=== PATIENT | female | born 1940 | race Caucasian/White ===

== ENCOUNTER 2017-01-02 10:38 | Inpatient (IN) | payer MEDICARE, OTHER ==
--- NOTE | ~2017-01-02 | HP ---
History And Physical [id number] [facility] [place]. [address] NAME: LENNY FALL : 38 STATUS : ADM IN [facility]#: [id number] AGE: 76 ADM/REG DATE : 01/02/17 MR#: [id number] REPORT SERV DATE: 01/02/17 DICTATED BY: JUSTIN RICCI DATE: 01/02/17 REPORT STATUS : Draft TRANSCRIBED BY: MODL DATE: 01/02/17 DATE OF ADMISSION: 01/02/2017 IDENTIFYING DATA: A 76-year-old white female whose PCP is Dr. Reza Sharma, medical oncologist is Dr. Hernan Sanabria, radiation oncologist is Dr. Guy; WEAVER HAND, Dr. Joe; GI, Dr. Trujillo; Neurology, Dr. Haro. CHIEF COMPLAINT: Right leg pain and fast heart rate. HISTORY OF PRESENT ILLNESS: This history of present illness is obtained by talking with the patient and her vvllscfo-gm-ptc at the bedside as well as speaking directly with Dr. Sharma and reviewing [employer] and the office notes sent by Dr. Sharma and a copy he sent of Dr. Hernan Sanabria's recent office note of 11/22/2016. 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 She had been to [facility] in the past as an outpatient for intensive physical therapy, but reportedly had no improvement of her chronic gait ataxia. She falls approximately one or two times per month. There was no loss of consciousness associated with these. She does use a cane but inconsistently. She states about two to three weeks ago, she fell. It is unclear the exact details. One point in time, it sounds like she was walking, and another point in time, she states she rolled out of bed. She has some bruising below the left eye. She had some right leg pain. She reportedly took Tylenol and it was better. Then on approximately five or six days ago, she started having some right buttock pain. No new falls associated. It does hurt to stand on that leg, but she is ambulating. She has been taking afhq-wav-jjngspz Tylenol for it and she chronically takes naproxen. She went to see Dr. Sharma today because of this and was noted to have a heart rate of 144 with a blood pressure of 90/60. He contacted us by phone and indicated she was in rapid atrial flutter. EKG was not sent with her and problem list was not sent with her. The patient has previous atrial flutter first noticed that I can find in the records on 10/24/2010 when she was hospitalized here for community-acquired pneumonia and seen by Dr. Huddleston. At that point in time, she converted into sinus rhythm. As far as she knows, no other episodes of this in the past. She was not aware today of her rapid heart rate. She had no sense of palpitations. No chest pain. No shortness of breath. REVIEW OF SYSTEMS: She states that her right hand coordination has been poor for some time for handwriting skills. She has some minimal chronic dyspnea on exertion. She had a little bit of diarrhea this morning. She has chronic urinary incontinence. She has occasional right ankle edema. She denies fever, cough, nasal congestion, sore throat, chest pain, abdominal pain, nausea, vomiting, bright red blood per rectum, melena, dysuria, rash tick bites, and anorexia. She states her weight has fluctuated between 99 and 104. ALLERGIES: SHE ON THE CHART HAS A HISTORY OF PENICILLIN ALLERGY, BUT SHE STATES THAT IS NOT CORRECT, SHE CAN TAKE IT, AND HAS BEEN TAKING IT. SHE STATES THAT SHE HAS HAD SULFA ALLERGY A CHILD, BUT SHE DOES NOT KNOW THE NATURE OF IT, AND SHE HAD CODEINE INTOLERANCE. History And Physical [address] [address] NAME: LENNY FALL : 38 STATUS : ADM IN [facility]#: [id number] AGE: 76 ADM/REG DATE : 01/02/17 MR#: [id number] REPORT SERV DATE: 01/02/17 DICTATED BY: JUSTIN RICCI DATE: 01/02/17 REPORT STATUS : Draft TRANSCRIBED BY: MODL DATE: 01/02/17 PAST MEDICAL HISTORY: Further otherwise is negative for diabetes, hypertension, asthma, myocardial infarction, congestive heart failure, seizure, biliary tract disease, liver disease, chronic kidney disease, kidney stones, thyroid disease, or sleep apnea. She had adenocarcinoma of the left upper lung, treated with wedge resection in 02/2014, three positive lymph nodes at that time. She underwent adjuvant chemotherapy with Dr. Hernan Sanabria including four cycles of cisplatin, pemetrexed. She also had adjuvant radiation through 08/2014. As far as the family knows, she has no evidence of disease. She has had iron deficiency anemia and has been referred by her telecom manager to Dr. Trujillo for an outpatient colonoscopy, which was not yet performed. She has osteoporosis, fibrocystic breast disease, overactive bladder, dementia with what the family describes as some possible Parkinson's like features according to what Dr. Haro has told them. She also has a history of depression and insomnia. She was evaluated at [place] for possible TIA several years ago. It was vague, but apparently she had some difficulty with word finding. At one point, she was referred to Neurosurgery at [place] for evaluation for normal pressure hydrocephalus. She underwent therapeutic spinal fluid removal, but did not have improvement, so no shunt was placed. She has had a history of gastroesophageal reflux disease and peptic ulcer disease years ago. She also has reportedly had urinary tract infections. It was difficult to get her to describe the symptoms associated with them. She does state that she had a recent urine infection and her WEAVER HAND, Dr. Joe, gave her an antibiotic. MEDICATIONS: Home medication list is still in process, but it looks like she takes Aggrenox b.i.d., Lexapro 10 mg daily, Aricept 10 mg daily, naproxen unknown strength b.i.d., KCl 20 mEq daily, Dexilant 60 mg daily, Tylenol over the counter p.r.n., iron over the counter daily, unknown strength; estradiol, unknown strength, daily; temazepam 7.5 mg at bedtime. These are per handwritten notes from her PCP. Some of them I am not able to read the milligrams clearly. PAST SURGICAL HISTORY: She had appendectomy, left upper lobe wedge removal, , hernia repair, hysterectomy, tonsillectomy, port placement, bladder Botox injections, and epidural steroid injections for chronic back pain. SOCIAL HISTORY: She quit smoking cigarettes 40 years ago. 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 She drinks maybe a 3rd a glass of wine at bedtime and denies any significant excess beyond that in the past. She walks at home with a cane sometimes. She lives with dogs. Family checks on her, but do not live with her. FAMILY HISTORY: Mother reportedly had lung cancer. Father had cirrhosis and she states "heart fibrillation." Brother with obesity, arthritis problems, thyroid disease, "heart fibrillation," and other heart problems. DIAGNOSTIC DATA: Most recent CBC that I find is quite old. Her last hemoglobin that I can find was 9.6 on 07/11/2016. Her last TSH that I could find was in 03/2015, it was normal at 1.52. On 08/25/2016, her basic metabolic profile was normal except for BUN of 31. Office History And Physical [address] [address] NAME: LENNY FALL : 38 STATUS : ADM IN [facility]#: [id number] AGE: 76 ADM/REG DATE : 01/02/17 MR#: [id number] REPORT SERV DATE: 01/02/17 DICTATED BY: JUSTIN RICCI DATE: 01/02/17 REPORT STATUS : Draft TRANSCRIBED BY: MODYinka DATE: 01/02/[address] Hernan Sanabria indicates labs on 11/22/2016, sodium 136, potassium 4.1, chloride 98, CO2 of 29, BUN 31, creatinine 0.7. The liver enzymes were normal. Her white count was 6.3, hemoglobin was 10.1, her MCV was microcytic at 80.5. EKG reveals atrial flutter with rapid ventricular response, nonspecific ST and T-wave abnormalities. PHYSICAL EXAMINATION: VITAL SIGNS: Temp is 98, pulse 145, respirations 18, blood pressure 116/87, O2 saturation is 97% on room air. BMI is 18.6. GENERAL: A well developed, thin, older female, who appears mildly anxious, but in no acute distress. HEENT: Head is atraumatic. Pupils are equal, round, and reactive to light. Extraocular motions are intact. No scleral icterus noted. Ears, externally unremarkable with no inflammatory changes noted. Nose, noninflamed externally. Septum midline. Nares patent. Mouth, moist. Good gag. No redness of the throat or gums or lips. NECK: Supple. No lymph node or thyroid enlargement. The carotids have good pulses. No bruits. LUNGS: Clear. Excellent air flow. No wheezes and no rhonchi anteriorly and posteriorly. Normal respiratory effort. HEART: Regular and rapid approximately 150 beats per minute. No murmur, gallop, or rub noted at the moment. ABDOMEN: Bowel sounds are positive. Soft, nondistended, nontender. No masses. No organomegaly. No bruits. EXTREMITIES: Warm. Good pulses. No clubbing, no cyanosis, no edema. No actively inflamed skin or joints. NEUROLOGIC: She is alert. She is oriented to person, place, time, and circumstance. Her motor strength is 3/5 in all four extremities. No Babinski, no clonus noted. Cranial nerves 2 through 12 are grossly normal. She has no pain in the right hip with active or passive range of motion at the hip or knee. She has some minimal right leg straight leg raise tenderness. ASSESSMENT: 1. Recurrent atrial flutter with rapid ventricular response, asymptomatic. 2. Right hip pain, probably arthritis or degenerative disk disease. 3. History consistent with iron deficiency anemia. 4. Frequent falls with chronic ataxia going for several years. 5. Low blood pressure initially today, now improved to 116/82. 6. See past medical history. PLAN: 1. She is being admitted on telemetry. We will check cardiac troponin. We will get a TSH and a fresh echocardiogram. We will check magnesium and potassium. We will check stool guaiac, and if she has diarrhea, we will check it for culture, leukocytes, parasites, and C diff since she had recent antibiotics. We will ask Cardiology their opinion about whether she might be a candidate for cardioversion or ablation since she appears to be a poor long-term candidate for anticoagulation with her frequent falls and her iron deficiency anemia. 2. We will ask physical therapy to reassess her. History And Physical [address] [address] NAME: LENNY FALL : 38 STATUS : ADM IN [facility]#: [id number] AGE: 76 ADM/REG DATE : 01/02/17 MR#: [id number] REPORT SERV DATE: 01/02/17 DICTATED BY: JUSTIN RICCI DATE: 01/02/17 REPORT STATUS : Draft TRANSCRIBED BY: SOLIS DATE: 01/02/17 3. Cardizem drip to help control her heart rate will be initiated at this time. 4. We will get x-rays of right hip and her lumbar spine. JOHNNA/SOLIS Justin Ricci M.D. / [id number] CC: Romaine Pérez M.D. Davey B. Daniel, M.D. Alan Shikoh, M.D. Raoul Haro M.D., PhD.
--- NOTE | ~2017-01-02 | CN ---
Consultation Report [facility] [address] [place] [place]. [address] NAME: LENNY FALL : 38 STATUS : ADM IN [facility]#: [id number] AGE: 76 ADM/REG DATE : 01/02/17 MR#: [id number] REPORT SERV DATE: 01/03/17 DICTATED BY: UNA WIN DATE: 01/02/17 REPORT STATUS : Draft TRANSCRIBED BY: MODL DATE: 01/02/17 CARDIOLOGY CONSULTATION DATE OF CONSULTATION: 01/02/2017 REASON FOR CONSULTATION: Atrial flutter with rapid ventricular rate. HISTORY OF PRESENT ILLNESS: The patient is a 76-year-old female who denies previous cardiac history. There is a report of brief episode of atrial flutter in the setting of pneumonia in 2010. The patient had a recent mechanical fall approximately 2 to 3 weeks ago with complaints of right hip pain. She was in seeing her primary care physician today when incidentally, she was noted to be tachycardic. She does report a one-day history of diarrhea. She denies any other GI symptoms. Specifically, she denies chest pain, presyncope, or syncope. She denies paroxysmal nocturnal dyspnea, dyspnea on exertion, or orthopnea. She does report a 1-year history of intermittent palpitations, which happen randomly and quite infrequently and are brief in duration. She has attributed them to her sedentary lifestyle and deconditioning and anxiety. On initial evaluation at [facility], she was noted to be in typical atrial flutter with 2:1 block. Given intravenous diltiazem with conversion to sinus rhythm. The patient is currently asymptomatic. Desires to be discharged. We discussed potential stroke risks associated with atrial flutter. CHADS2-VASc score of 5 (2 for age, 1 gender, 2 for history of cerebrovascular accident). PAST MEDICAL HISTORY: 1. Cerebrovascular accident approximately 3 years ago with history of multiple transient ischemic attacks. 2. History of lung carcinoma, status post left upper lobectomy with chemotherapy and radiation in 2013. 3. Reportedly a remote history of atrial flutter in the setting of pneumonia in 2010. 4. GERD. 5. Osteoporosis. 6. Recurrent falls secondary to unstable gait. SOCIAL HISTORY: Denies tobacco for at least the last 40 years. Reports occasional alcohol use. Denies illicit drug use. FAMILY HISTORY: Noncontributory. REVIEW OF SYSTEMS: Negative for all organ systems except per the history of present illness. On discussion with the patient, the patient reports that she has recurrent falls on average every 3 to 4 weeks. She has not been hospitalized for these falls. She has had no broken Consultation Report [address] [place]. [address] NAME: LENNY FALL : 38 STATUS : ADM IN [facility]#: [id number] AGE: 76 ADM/REG DATE : 01/02/17 MR#: [id number] REPORT SERV DATE: 01/03/17 DICTATED BY: UNA WIN DATE: 01/02/17 REPORT STATUS : Draft TRANSCRIBED BY: MODL DATE: 01/02/17 bones or major trauma or injury related to the same. PHYSICAL EXAMINATION: VITALS: BP 116/82. PULSE currently 76 and regular. WEIGHT 48 kg. RESPIRATIONS 12 and unlabored. OXYGEN SATURATION 97% on room air. GENERAL: Thin elderly female in no acute distress. HEENT: Normal. NECK: Supple, no JVD or bruit, normal carotid upstroke bilaterally, no thyromegaly. CHEST: Port catheter is noted subcutaneously in the right infraclavicular region. LUNGS: Clear to auscultation and percussion. No wheezes, rales or rhonchi. No use of accessory muscles. CARDIOLOGY: Regular rhythm, normal S1, S2, no thrill, no murmur, rubs or gallops, normal PMI. ABDOMEN: Bowel sounds positive, soft, nontender, and nondistended. No masses or aortic bruits. No hepatosplenomegaly or hepatojugular reflux. EXTREMITIES: No edema. Normal pulses. No clubbing or cyanosis. SKIN: Warm and dry, no significant rash. NEUROLOGIC: Alert and oriented x 3. Appropriate mood. LABORATORY DATA: Sodium 139, potassium 4.3, chloride 104, BUN 21, creatinine 0.81. Glomerular filtration rate 81 mL/minute. Glucose 138. WBC 8.3, hemoglobin 12.5, hematocrit 37.8, platelets 230,000. Beta natriuretic peptide mildly elevated at 444. Troponin marginally elevated at 0.12. Thyroid stimulating hormone normal at 1.5. EKG on presentation demonstrated typical atrial flutter with ventricular rate approximately 150 beats per minute. Following conversion to sinus rhythm, EKG in sinus rhythm with rate of 71 beats per minute and a normal EKG. IMPRESSION: Paroxysmal atrial flutter - spontaneous conversion to sinus rhythm. The patient asymptomatic currently. Reports one-year history of intermittent palpitations. The patient has significant fall risk; however, has had no significant injury thus far with falls. High stroke risk. We have recommended consideration for chronic anticoagulation as I believe her risk of recurrent stroke, particularly given her history of multiple TIAs and stroke in the past, outweighs her bleeding risk from mechanical fall. Request has been made to the case coordinator to evaluate for affordability of one of the three novel oral anticoagulants. She reports home blood pressures typically in the 90s, systolic. Blood pressure in the hospital has not been that low with blood pressures in the one-teens systolic. We could consider low dose metoprolol as blood pressure would tolerate. We will begin 12.5 mg of metoprolol b.i.d. and follow blood pressures and pulse. Thank you for the opportunity to see the patient in consultation. We will continue to follow the patient with you. Consultation Report [address] [place]. [address] NAME: LENNY FALL : 38 STATUS : ADM IN [facility]#: [id number] AGE: 76 ADM/REG DATE : 01/02/17 MR#: [id number] REPORT SERV DATE: 01/03/17 DICTATED BY: UNA WIN DATE: 01/02/17 REPORT STATUS : Draft TRANSCRIBED BY: SOLIS DATE: 01/02/17 ROSEY/SOLIS Kayla Win M.D. / [id number] CC: Romaine Pérez M.D.
--- NOTE | ~2017-01-02 | DS ---
Discharge Summary [facility] [address] [place]. [address] NAME: LENNY FALL : 38 STATUS : DIS IN PAT#: [id number] AGE: 76 ADM/REG DATE : 01/02/17 MR#: [id number] REPORT SERV DATE: 01/05/17 DICTATED BY: JUSTIN RICCI DATE: 01/04/17 REPORT STATUS : Draft TRANSCRIBED BY: MODL DATE: 01/04/17 ADMISSION DATE: 01/02/2017 DISCHARGE DATE: 01/04/2017 CONSULTANTS: Jass Win, Cardiology. DISCHARGE DIAGNOSES: 1. Paroxysmal atrial flutter with rapid ventricular response. 2. Mild anemia, consistent with iron deficiency. 3. Osteoarthritis of right hip. 4. 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 5. History of frequent falls, but no serious injury. HISTORY: This patient experiences periodic falls. She has chronic gait ataxia. She has in the past gone as an outpatient to [facility] for intensive physical therapy, but reportedly did not get improvement. She still falls once or twice per month. Fortunately, she has had no serious injuries with it. About a week to two prior to this admission, she had a fall, had some bruising on the left eye area, also some right hip and posterior back pain radiating to the leg. She was taking qqns-dvk-xyvtwkw Tylenol without improvement. She went to see her PCP, Dr. Sharma to discuss these pains and was noted to have a rapid heart rate in the 140s. EKG confirmed atrial flutter. Blood pressure was low. The patient was referred to us for direct admission. EKG did confirm atrial flutter with rapid ventricular response rate, 142 beats per minute with a nonspecific intraventricular conduction delay. We were preparing to give the patient a Cardizem infusion when she converted to sinus rhythm and her EKG confirmed that. Echocardiogram on 01/03/2017, left atrial size 2.8 cm; left ventricular ejection fraction 60%; mild left ventricular diastolic dysfunction; mildly dilated right ventricle with preserved systolic function; mildly calcified aortic valve without significant aortic stenosis; mild aortic, mitral, and tricuspid regurgitation. The patient's cardiac troponin was minimally elevated at 0.12 consistent with demand ischemia. TSH normal at 1.5, free T4 normal at 1.24. Potassium levels were normal. Magnesium levels were normal. Chest x-ray, PA and lateral showed some atelectasis at the left apex. This patient has a history of adenocarcinoma with a wedge resection of the left upper lobe, positive lymph nodes, had adjuvant chemo and radiation with Dr. Hernan Sanabria and Dr. Guy, and reportedly has no evident disease at this time. As far as that pain in her right hip and lumbar spine, plain films of her right hip revealed right hip joint osteoarthritis, no fracture dislocation, or lytic or blastic lesions. X-ray of her lumbar spine confirmed degenerative changes especially the L4 in relation to L5 and L5 in relation to L4. Tylenol was not controlling her pain. We did not want to use the anti-inflammatories at her age and with history of heart disease and likely need for anticoagulation, so we put her on low-dose tramadol which is seeming to help considerably. The patient has been referred to GI, Dr. Trujillo, for a colonoscopy because she has a history Discharge Summary [address] [address] NAME: LENNY FALL : 38 STATUS : DIS IN PAT#: [id number] AGE: 76 ADM/REG DATE : 01/02/17 MR#: [id number] REPORT SERV DATE: 01/05/17 DICTATED BY: JUSTIN RICCI DATE: 01/04/17 REPORT STATUS : Draft TRANSCRIBED BY: SOLIS DATE: 01/04/17 of iron deficiency anemia. Stool guaiac here on 01/02/2017 was negative. The patient's hemoglobin while here ranged between 11.2 and 12.5. Her indices are normal except RDW increased at 18.9. Her serum iron 66, ferritin is 19 which is low considering the inflammatory state she is in, TIBC was 350, B12 was 562. I did not start her on oral iron because that will make her stools black, and with her newly started Xarelto, it may create concern for active GI bleed. If she needs iron replacement, then I would recommend outpatient iron infusions. I spent time talking at length with the patient and her gjlonpcz-sp-dhx about the risks and benefits of anticoagulation in general. Her CHADS2 Vasc score is 5. We discussed the benefit is reduction of stroke risk, but not complete resolution of stroke risk. We talked about warfarin versus NOAC. She did not want to do warfarin. I described to her that there were no reversal agents for Xarelto or Eliquis. We did check the co-pay cost with case management. Eliquis is not on her part D at all, so the cost would stay very high, Xarelto and Pradaxa are. The patient preferred Xarelto. I will therefore stop her Aggrenox and use just low-dose aspirin with the Xarelto. DISCHARGE MEDICATIONS: Restasis one drop each eye twice a day; vitamin D 1000 units daily; Aricept 10 mg daily; Lexapro 10 mg daily; Dexilant 60 mg daily; Tylenol 650 q.4 hours p.r.n. mild pain; metoprolol 12.5 mg b.i.d., hold if systolic less than 100 or heart rate less than 60; melatonin 3 mg at bedtime p.r.n. insomnia; tramadol 50 mg half tablet t.i.d. p.r.n. pain and I gave her a written prescription for 45 of those, no refill; Estrace 0.5 mg daily; Salonpas topical; Xarelto 20 mg daily; aspirin 81 mg daily, I gave her written instructions; no Advil, Aleve, or ibuprofen. DISCHARGE INSTRUCTIONS: She is to follow up with Dr. Sharma in one week and with Cardiology, Dr. Win in three to four weeks. She should also follow up with Dr. Trujillo of GI, but she was told that she will need to talk to Dr. Trujillo about discontinuing the Xarelto prior to colonoscopy or upper endoscopy. I spent 35 minutes with the patient today. DICTATED BY: Romaine Pérez/STEFANL Justin Ricci M.D. / [id number] CC: Justin Ricci M.D. Discharge Summary [address] [address] NAME: LENNY FALL : 38 STATUS : DIS IN PAT#: [id number] AGE: 76 ADM/REG DATE : 01/02/17 MR#: [id number] REPORT SERV DATE: 01/05/17 DICTATED BY: JUSTIN RICCI DATE: 01/04/17 REPORT STATUS : Draft TRANSCRIBED BY: MODL DATE: 01/04/17 Romaine Velásquez M.D. Joseph Portera, M.D. Jonathan T Whaley, MD Davey B. Daniel, M.D. Matthew Kodsi, M.D., PhD. C. Hood Win M.D.
[~2017-01-02 10:38] MED LIST: AGGRENOX PO; ARICEPT10 PO; B-COMPLEX PO; CENESTIN PO; CENESTIN0.3 MG OR; CENESTIN0.625 MG OR; DSS PO; ESIDRIX PO; ESTROGEN PO; FOLIC PO; FOS10 PO; HARD NAILS OR; KAPIDEX60 MG PO; LEXAPRO10 PO; MAGOX4 PO; MIRALAXPKT PO; NAP500 PO; NUCYNTA50 MG PO; POTASSIUM; PROBIOTIC PO; RESTASIS OPH; ROSTASIS; ULTRAM50 PO; VESICARE10 MG PO; VITAMIN B-121000 MC1 SL; VITAMIN D31000 UNIT PO; [UNRECOGNIZED DRUG - OTHER]; [UNRECOGNIZED DRUG - REMARK] PO
[2017-01-02] MEDS ORDERED: AGGRENOX PO (14:03)
[2017-01-02] MEDS ORDERED: NAP500 PO (14:04)
[2017-01-02] MEDS ORDERED: KAPIDEX60 MG PO (14:05)
[2017-01-02] MEDS ORDERED: LEXAPRO10 PO (14:05)
[2017-01-02] MEDS ORDERED: ARICEPT10 PO (14:06)
[2017-01-02] MEDS ORDERED: ESTRACE0.5 MG PO (14:08)
[2017-01-02] MEDS ORDERED: VITAMIN D1000 UNI1 PO (14:08)
[2017-01-02] MEDS ORDERED: RESTASIS OPH (14:09)
[2017-01-02] MEDS ORDERED: SALONPAS TOP (14:11)
[2017-01-02 14:28] LABS: BASOPHILS 0.2 %; BASOPHILS ABSOLUTE 0.02 10/3/uL (0.0-0.16); EOSINOPHILS ABSOLUTE 0.08 10/3/uL (0.0-0.53); IMMATURE GRANULOCYTES 0.2 %; IMMATURE GRANULOCYTES ABSOLUTE 0.02 10/3/uL (0.0-0.11); LYMPHOCYTES 18.7 %; LYMPHOCYTES ABSOLUTE 1.55 10/3/uL (0.67-4.30); MEAN CORPUS HGB CONC 33.1 g/dL (32.0-36.0); MEAN CORPUSCULAR HEMOGLOB 28.2 pg (26.0-34.0); MEAN CORPUSCULAR VOLUME 85.1 fL (80-100); MEAN PLATELET VOLUME 9.2 fL (9.2-13.0); MONOCYTES 13.8 %; MONOCYTES ABSOLUTE 1.14 10/3/uL (0.21-1.20); NEUTROPHILS 66.1 %; NEUTROPHILS ABSOLUTE 5.46 10/3/uL (2.02-8.40); PLATELET COUNT 230 10/3/uL (150-400); RBC DISTRIBUTION WIDTH 18.8 % (12.0-16.0); RED CELL COUNT 4.44 10/6/uL (4.0-5.6)
[2017-01-02 14:29] LABS: HEMATOCRIT 37.8 % (36.0-48.0); HEMOGLOBIN 12.5 g/dL (12.0-16.0); MANUAL DIFF NO %; WHITE BLOOD CELLS 8.3 10/3/uL (4.5-10.5)
[2017-01-02 14:35] LABS: PARTIAL THROMBO TIME 47.1 SEC (22.5-37.2)
[2017-01-02 14:36] LABS: INTERNATIONAL NORMAL RATI 1.2 UNITS (-); PROTIME (NOT ORD) 14.7 SEC (12.0-14.5)
[2017-01-02 14:48] LABS: A/G RATIO 1.3 (0.7-1.9); ALBUMIN 3.7 G/DL (3.5-5.0); ALKALINE PHOSPHATASE 42 U/L (45-117); BUN (BLOOD UREA NITROGEN) 21 MG/DL (6-23); CALCIUM, SERUM 9.4 MG/DL (8.5-10.4); CHLORIDE, SERUM 104 MMOL/L (96-112); CO2 (CARBON DIOXIDE) 28 MMOL/L (24-34); CREATININE 0.81 MG/DL (0.55-1.02); GFR AFRICAN AMERICAN 81 ML/MIN (>=60); GFR NON AFRICAN AMERICAN 70 ML/MIN (>=60); GLOBULIN 2.8 G/DL (2.5-4.1); POTASSIUM, SERUM 4.3 MMOL/L (3.5-5.3); SGOT(AST) 17 U/L (5-40); SGPT(ALT) 15 U/L (5-65); SODIUM, SERUM 139 MMOL/L (135-148); TOTAL BILIRUBIN 0.3 MG/DL (0-1.2); TOTAL PROTEIN 6.5 G/DL (6.0-8.5)
[2017-01-02 14:49] LABS: GLUCOSE, SERUM 138 MG/DL (60-99)
[2017-01-02 14:50] LABS: TROPONIN I 0.12 NG/ML (<0.05)
[2017-01-02 17:21] LABS: FREE T4 1.24 NG/DL (0.76-1.46)
[2017-01-03 05:06] LABS: BASOPHILS 0.5 %; BASOPHILS ABSOLUTE 0.03 10/3/uL (0.0-0.16); EOSINOPHILS 3.5 %; EOSINOPHILS ABSOLUTE 0.23 10/3/uL (0.0-0.53); HEMOGLOBIN 11.5 g/dL (12.0-16.0); IMMATURE GRANULOCYTES 0.2 %; IMMATURE GRANULOCYTES ABSOLUTE 0.01 10/3/uL (0.0-0.11); LYMPHOCYTES 33.4 %; LYMPHOCYTES ABSOLUTE 2.17 10/3/uL (0.67-4.30); MEAN CORPUS HGB CONC 32.9 g/dL (32.0-36.0); MEAN CORPUSCULAR HEMOGLOB 28.2 pg (26.0-34.0); MEAN CORPUSCULAR VOLUME 85.8 fL (80-100); MEAN PLATELET VOLUME 9.2 fL (9.2-13.0); MONOCYTES 15.4 %; NEUTROPHILS ABSOLUTE 3.05 10/3/uL (2.02-8.40); PLATELET COUNT 243 10/3/uL (150-400); RED CELL COUNT 4.08 10/6/uL (4.0-5.6); WHITE BLOOD CELLS 6.5 10/3/uL (4.5-10.5)
[2017-01-03 05:07] LABS: MANUAL DIFF NO %
[2017-01-03 05:18] LABS: BUN (BLOOD UREA NITROGEN) 23 MG/DL (6-23); CALCIUM, SERUM 9.2 MG/DL (8.5-10.4); CHLORIDE, SERUM 107 MMOL/L (96-112); CO2 (CARBON DIOXIDE) 27 MMOL/L (24-34); CREATININE 0.68 MG/DL (0.55-1.02); GFR AFRICAN AMERICAN 97 ML/MIN (>=60); GFR NON AFRICAN AMERICAN 84 ML/MIN (>=60); POTASSIUM, SERUM 4.1 MMOL/L (3.5-5.3); SODIUM, SERUM 140 MMOL/L (135-148)
[2017-01-03 05:20] LABS: GLUCOSE, SERUM 107 MG/DL (60-99)
[2017-01-03 17:54] LABS: FERRITIN 19 NG/ML (8-252); IRON BINDING CAPACITY 350 MCG/DL (225-410); IRON, SERUM 66 MCG/DL (35-150)
[2017-01-04 07:40] LABS: BASOPHILS 0.2 %; BASOPHILS ABSOLUTE 0.01 10/3/uL (0.0-0.16); EOSINOPHILS 3.9 %; EOSINOPHILS ABSOLUTE 0.26 10/3/uL (0.0-0.53); HEMATOCRIT 34.1 % (36.0-48.0); HEMOGLOBIN 11.2 g/dL (12.0-16.0); IMMATURE GRANULOCYTES 0.2 %; IMMATURE GRANULOCYTES ABSOLUTE 0.01 10/3/uL (0.0-0.11); LYMPHOCYTES 26.6 %; LYMPHOCYTES ABSOLUTE 1.75 10/3/uL (0.67-4.30); MEAN CORPUS HGB CONC 32.8 g/dL (32.0-36.0); MEAN CORPUSCULAR HEMOGLOB 28.1 pg (26.0-34.0); MEAN CORPUSCULAR VOLUME 85.5 fL (80-100); MEAN PLATELET VOLUME 9.5 fL (9.2-13.0); MONOCYTES 11.4 %; MONOCYTES ABSOLUTE 0.75 10/3/uL (0.21-1.20); NEUTROPHILS 57.7 %; NEUTROPHILS ABSOLUTE 3.81 10/3/uL (2.02-8.40); PLATELET COUNT 231 10/3/uL (150-400); RBC DISTRIBUTION WIDTH 18.9 % (12.0-16.0); RED CELL COUNT 3.99 10/6/uL (4.0-5.6); WHITE BLOOD CELLS 6.6 10/3/uL (4.5-10.5)
[2017-01-04 07:41] LABS: MANUAL DIFF NO %
[2017-01-04 07:51] LABS: CALCIUM, SERUM 9.1 MG/DL (8.5-10.4); CHLORIDE, SERUM 107 MMOL/L (96-112); CO2 (CARBON DIOXIDE) 27 MMOL/L (24-34); CREATININE 0.67 MG/DL (0.55-1.02); GFR AFRICAN AMERICAN 98 ML/MIN (>=60); GFR NON AFRICAN AMERICAN 84 ML/MIN (>=60); GLUCOSE, SERUM 95 MG/DL (60-99); SODIUM, SERUM 141 MMOL/L (135-148)
[2017-01-04 07:53] LABS: BUN (BLOOD UREA NITROGEN) 32 MG/DL (6-23)
[2017-01-04] MEDS ORDERED: LOP25 PO (11:36)
[2017-01-04] MEDS ORDERED: T PO (11:37)
[2017-01-04] MEDS ORDERED: MELA3 PO (11:38)
[2017-01-04] MEDS ORDERED: ULTRAM50 PO (11:40)
[2017-01-04] MEDS ORDERED: XARELTO20 MG PO (11:43)
[2017-01-04] MEDS ORDERED: ASAB PO (11:43)
[2017-03-02] MEDS ORDERED: LEXAPRO10 PO (22:54)
[2017-03-02] MEDS ORDERED: ARICEPT10 PO (22:54)
[2017-03-02] MEDS ORDERED: METHOC500B PO (22:54)
[2017-03-02] MEDS ORDERED: CIP2 PO (22:55)
[2017-03-02] MEDS ORDERED: LOP25 PO (22:56)
[2017-03-02] MEDS ORDERED: KAPIDEX60 MG PO (22:57)
[2017-03-02] MEDS ORDERED: XARELTO20 MG PO (22:58)
[2017-03-02] MEDS ORDERED: ULTRAM50 PO (22:58)
[2017-03-02] MEDS ORDERED: ESTRACE0.5 MG PO (22:59)
[2017-03-02] MEDS ORDERED: RESTASIS OPH (22:59)
[2017-03-02] MEDS ORDERED: SYSTAN1 OPH (23:00)
[2017-03-02] MEDS ORDERED: SALONPAS-HOT TOP (23:01)
[2017-03-02] MEDS ORDERED: T PO (23:05)
[2017-03-02] MEDS ORDERED: VITAMIN D3 PO (23:06)
[2017-03-02] MEDS ORDERED: PEP20 PO (23:07)
[2017-03-02] MEDS ORDERED: DSS PO (23:07)
[2017-03-04] MEDS ORDERED: CORDARONE PO (12:36)
== END 2017-01-04 15:28 | disposition home or self-care (01) | DRG 310 ==
LOC: 1SO 10:38
PROVIDERS: Hospitalist; Nurse Practitioner Family
DX: I48.3 Typical atrial flutter (principal); F03.90 Unspecified dementia, unspecified severity, without behavioral disturbance, psychotic disturbance, mood disturbance, and anxiety; N32.81 Overactive bladder; K21.9 Gastro-esophageal reflux disease without esophagitis; D50.9 Iron deficiency anemia, unspecified; R32 Unspecified urinary incontinence; M16.11 Unilateral primary osteoarthritis, right hip; R26.0 Ataxic gait; M51.36 Other intervertebral disc degeneration, lumbar region; Z79.899 Other long term (current) drug therapy; Z87.891 Personal history of nicotine dependence; R29.6 Repeated falls; Z86.73 Personal history of transient ischemic attack (TIA), and cerebral infarction without residual deficits; Z85.118 Personal history of other malignant neoplasm of bronchus and lung; Z87.01 Personal history of pneumonia (recurrent); Z90.2 Acquired absence of lung [part of]; Z91.81 History of falling; Z88.0 Allergy status to penicillin; Z88.2 Allergy status to sulfonamides; Z88.5 Allergy status to narcotic agent
CPT/HCPCS: 71020; 72020; 73502-RT; 80048; 80053; 82272; 82607; 82728; 83540; 83550; 83735; 83880; 84439; 84443; 84484; 85025; 85610; 85730; 93005; 93306; A9270-GY